=== PATIENT | female | born 1960 | race Caucasian/White ===

== ENCOUNTER 2017-09-10 10:27 | Emergency (ER) | payer MEDICAID ==
[2017-09-10 13:02] VITALS: BP 115/76
== END 2017-09-10 13:02 | disposition home or self-care (01) ==
LOC: ED 10:27
DX: M75.41 Impingement syndrome of right shoulder (principal); I10 Essential (primary) hypertension; E11.9 Type 2 diabetes mellitus without complications
CPT/HCPCS: J1170; J1885; Q0162

== ENCOUNTER 2018-11-28 15:16 | Emergency (ER) | payer MEDICAID ==
[~2018-11-28] VITALS: Ht 152.4 cm; Wt 94.5 kg
[2018-11-28 15:38] VITALS: Ht 152.4 cm; Wt 94.5 kg
[2018-11-28 17:15] LABS: BASOPHIL % 0.2 % (0-2); PLATELET COUNT 263 x10^3mcL (130-400); RED CELL DISTRIBUTION WIDTH 12.8 % (11.5-14.5)
[2018-11-28 17:17] LABS: CALCIUM 9.1 mg/dL (8.5-10.1); CARBON DIOXIDE 27.4 mmol/L (21-32); CHLORIDE SERUM 101 mmol/L (98-107); GFR1 > 60 mL/min; GLUCOSE SERUM 238 mg/dL (74-106); POTASSIUM SERUM 3.6 mmol/L (3.5-5.1); SODIUM SERUM 137 mmol/L (136-145)
[2018-11-28 17:23] LABS: ALBUMIN 3.8 g/dL (3.4-5.0); ALKALINE PHOSPHATASE 130 U/L (46-116); ALT/SGPT 40 U/L (14-59); AST/SGOT 19 U/L (15-37); BILIRUBIN TOTAL 0.3 mg/dL (0.20-1.00); TOTAL PROTEIN, SERUM 8.1 g/dL (6.4-8.2)
[2018-11-28 19:21] LABS: microscopic required? YES; urine erythrocyte NEGATIVE (NEGATIVE)
[2018-11-28 21:11] VITALS: BP 117/76
== END 2018-11-28 21:11 | disposition home or self-care (01) ==
LOC: ED 15:16
PROVIDERS: Emergency Medicine
DX: M62.838 Other muscle spasm (principal); N39.0 Urinary tract infection, site not specified; F41.9 Anxiety disorder, unspecified; I10 Essential (primary) hypertension; E11.9 Type 2 diabetes mellitus without complications
CPT/HCPCS: J1885; J2060

== ENCOUNTER 2019-01-24 20:00 | Emergency (ER) | payer MEDICAID ==
[~2019-01-24] VITALS: Ht 157.5 cm; Wt 92.5 kg
[2019-01-24 20:08] VITALS: Ht 157.5 cm; Wt 92.5 kg
[2019-01-24 21:21] VITALS: BP 101/56
== END 2019-01-24 21:21 | disposition home or self-care (01) ==
LOC: ED 20:00
DX: S83.91XA Sprain of unspecified site of right knee, initial encounter (principal); I10 Essential (primary) hypertension; E11.9 Type 2 diabetes mellitus without complications; W01.0XXA Fall on same level from slipping, tripping and stumbling without subsequent striking against object, initial encounter; Y93.89 Activity, other specified; Y92.89 Other specified places as the place of occurrence of the external cause; Y99.8 Other external cause status

== ENCOUNTER 2019-02-08 15:43 | Inpatient (IN) | payer MEDICAID ==
[~2019-02-08] VITALS: Ht 157.5 cm; Wt 89.8 kg
[2019-02-08 15:48] VITALS: Ht 157.5 cm; Wt 89.8 kg
--- NOTE | 2019-02-08 15:53 | NUR ---
PT WALKED TO BED 11.
[2019-02-08 16:46] LABS: CALCIUM 9.3 mg/dL (8.5-10.1); CARBON DIOXIDE 27.5 mmol/L (21-32); CHLORIDE SERUM 103 mmol/L (98-107); CREATININE SERUM 0.8 mg/dL (0.6-1.0); GFR1 > 60 mL/min; GLUCOSE SERUM 152 mg/dL (74-106); SODIUM SERUM 139 mmol/L (136-145)
[2019-02-08 16:50] LABS: ALBUMIN 3.6 g/dL (3.4-5.0); ALKALINE PHOSPHATASE 108 U/L (46-116); ALT/SGPT 31 U/L (14-59); AST/SGOT 15 U/L (15-37); BASOPHIL % 0.3 % (0-2); BILIRUBIN TOTAL 0.3 mg/dL (0.20-1.00); PLATELET COUNT 299 x10^3mcL (130-400); RED CELL DISTRIBUTION WIDTH 12.9 % (11.5-14.5); TOTAL PROTEIN, SERUM 7.6 g/dL (6.4-8.2)
[2019-02-08 17:05] LABS: UA SPECIFIC GRAVITY <=1.005 (1.005-1.035); microscopic required? YES; urine erythrocyte NEGATIVE (NEGATIVE)
--- NOTE | 2019-02-08 17:18 | NUR ---
LACTIC ACID 4.3. DR. ORTEGA WAS NOTIFIED BY SURI JOHNS. 2ND LITTER OF NS0.9% STARTED.
[2019-02-08] MEDS ORDERED: ASPIR 8181 MG PO (17:37)
[2019-02-08] MEDS ORDERED: GEMFIBROZIL600 MG PO (17:38)
[2019-02-08] MEDS ORDERED: ZESTRIL5 MG PO (17:39)
[2019-02-08] MEDS ORDERED: GLYBURIDE AND M PO (17:41)
[2019-02-08] MEDS ORDERED: SIMVASTATIN10 M1 PO (17:41)
--- NOTE | 2019-02-08 18:02 | NUR ---
PT WAS ADMITED TO TELE ROOM 219B. REPORT WAS CALLED AND GIVEN TO MARCO. PT IS READY TO BE TRANSFERED NOW.
[2019-02-08 18:03] LABS: CHOLESTEROL/HDL RATIO 3.6; MAGNESIUM 1.9 mg/dL (1.8-2.4); PHOSPHOROUS 3.8 mg/dL (2.5-4.9)
[2019-02-08 18:13] LABS: FREE T4 1.16 ng/dL (0.76-1.46); FREE THYROXINE INDEX 3.1 ug/dL (1.4-4.5); T4(THYROXINE) 9.8 ug/dL (4.7-13.3)
[2019-02-08 18:28] VITALS: BP 131/66
--- NOTE | 2019-02-08 18:36 | NUR ---
RECEIVED PT FROM ER, PT ADMIT FOR HYPOGLYCEMIA, LACTIC ACID. PT IS A/O X4, VERBAL RESPONSIVE, ABLE TO TELL WHAT SHE NEEDS. LUNG SOUND CLEAR BILATERAL, NO COUGH, NO SOB, PT IS ON TELE 18, NSR, DENY ANY CHEST PAIN OR DISCOMFORT, BOWEL SOUND PRESENT ALL 4 QUADRANTS, NO DISTENTION, NO TENDER. PEDAL PULSE PRESENT BOTH FEET, +1 RLE. THERE IS VIJAY WRAP AT RIGHT KNEE, PT STATE SHE FALL LAST MONTH. SKIN IS INTACT, PT C/O PAIN AT RIGHT RIGHT KNEE WHILE WALK. IV AT LEFT AC, NO LEAKING, NO INFILTRATION. ALL ADLS ASSIST, ALL NEED MET, CALL LIGHT IN REACH, WILL CONTINUE TO MONITOR.
--- NOTE | 2019-02-08 18:56 | NUR ---
PT C/O THROBBING H/A 10/28; GIVEN TYLENOL 650MG PO; DIMMED ROOM, TURNED OFF TV FOR PT'S COMFORT. WILL ENDORSE TO NOC SHIFT.
--- NOTE | 2019-02-08 19:39 | NUR ---
ENDORSED PT TO NAT MCGINNIS.
--- NOTE | 2019-02-08 19:50 | NUR ---
RECEIVED REPORT FROM DAY SHIFT RN. PT RESTING IN BED. AA&O X4. NO SOB ON ROOM AIR. NO DISTRESS NOTED. IV TO LAC, INTACT. SAFETY MEASURES IN PLACE. BED IN LOWEST POSITION. SIDE RAILS UP X2. INSTRUCTED PT TO USE THE CALL LIGHT. CALL LIGHT WITHIN REACH. FAMILY AT BEDSIDE.
[2019-02-08 21:02] VITALS: BP 109/59
[2019-02-08 21:34] LABS: AMPHETAMINE QUAL UR NONE DETECTED (See below)
--- NOTE | 2019-02-09 03:17 | NUR ---
PT RESTING WITH EYES CLOSED. NO DISTRESS NOTED. CALL LIGHT WITHIN REACH. FAMILY AT BEDSIDE.
--- NOTE | 2019-02-09 05:23 | NUR ---
PT RESTED AT INTERVALS DURING SHIFT. NO SOB ON ROOM AIR. NO C/O PAIN. NO ACUTE DISTRESS NOTED. SAFETY MEASURES MAINTAINED. CALL LIGHT WITHIN REACH. SON AT BEDSIDE. WILL ENDORSE CONTINUITY OF CARE TO ONCOMING RN.
[2019-02-09 05:39] VITALS: BP 109/61
[2019-02-09 06:21] LABS: BASOPHIL % 0.4 % (0-2); PLATELET COUNT 239 x10^3mcL (130-400)
[2019-02-09 06:42] LABS: CARBON DIOXIDE 25.7 mmol/L (21-32); CHLORIDE SERUM 111 mmol/L (98-107); CREATININE SERUM 0.7 mg/dL (0.6-1.0); GFR1 > 60 mL/min; GLUCOSE SERUM 111 mg/dL (74-106); POTASSIUM SERUM 3.7 mmol/L (3.5-5.1); SODIUM SERUM 145 mmol/L (136-145)
--- NOTE | 2019-02-09 07:35 | NUR ---
RECEIVED PT IN BED. ASSESSED AND DOCUMENTED. DENIES PAIN THIS TIME. STABLE. SAFTEY PRECAUTIONS ARE IN PLACE. WILL MONITOR.
[2019-02-09 09:00] VITALS: BP 116/55
[2019-02-09] MEDS ORDERED: METFORMIN HCL1000 MG PO (10:05)
[2019-02-09 15:08] VITALS: BP 118/56
--- NOTE | 2019-02-09 15:20 | NUR ---
PT'S FAMILY CAME TO [facility] PT. DISCHARGE INSTRUCTIONS AND PRESCRIPTION GIVEN. PB SIGNED AND SENT WITH PT. IV REMOVED AND DRESSING APPLIED. TELE REMOVED AND RETURNED. PT DENIES ANY PAIN. STABLE. FILTER TIP CATCHER WHEELED PT DOWN TO LOBBY ACCOMPANIED WITH PT'S FAMILY. PT DC HOME.
[2019-02-09 23:17] LABS: T3 TOTAL 1.69 ng/mL
== END 2019-02-09 15:40 | disposition home or self-care (01) | DRG 420 ==
LOC: ED 15:43 → DU 17:30
PROVIDERS: Emergency Medicine; ADMIT General Practice
DX: E11.649 Type 2 diabetes mellitus with hypoglycemia without coma (principal); E87.2 Acidosis; E83.51 Hypocalcemia; T38.3X5A Adverse effect of insulin and oral hypoglycemic [antidiabetic] drugs, initial encounter; E11.65 Type 2 diabetes mellitus with hyperglycemia; I10 Essential (primary) hypertension; Z68.39 Body mass index [BMI] 39.0-39.9, adult; Z79.82 Long term (current) use of aspirin; Z79.84 Long term (current) use of oral hypoglycemic drugs; Y92.009 Unspecified place in unspecified non-institutional (private) residence as the place of occurrence of the external cause
CPT/HCPCS: 82962; 83880; 84439; 90732; G0378; J0696; J7030; J7042; Q0092

== ENCOUNTER 2019-12-11 13:37 | Emergency (ER) | payer MEDICAID ==
[~2019-12-11] VITALS: Ht 154.9 cm; Wt 88.5 kg
[~2019-12-11 13:37] MED LIST: ASPIR 8181 MG PO; GEMFIBROZIL600 MG PO; GLYBURIDE AND M PO; METFORMIN HCL1000 MG PO; SIMVASTATIN10 M1 PO; ZESTRIL5 MG PO
[2019-12-11 13:42] VITALS: Ht 154.9 cm; Wt 88.5 kg
[2019-12-11 15:22] VITALS: BP 143/77
== END 2019-12-11 15:22 | disposition home or self-care (01) ==
LOC: ED 13:37
DX: M54.12 Radiculopathy, cervical region (principal); I10 Essential (primary) hypertension; E11.9 Type 2 diabetes mellitus without complications
CPT/HCPCS: J1885